=== PATIENT | male | born 1990 | race Caucasian/White ===

== ENCOUNTER 2022-05-16 12:28 | Emergency (ER) | payer OTHER ==
[2022-05-16 14:06] LABS: HEMOGLOBIN 14.8 gm/dl (14.0-17.5); WHITE BLOOD COUNT 12.9 K/UL (4.5-11.0)
[2022-05-16 14:24] LABS: BUN/CREATININE RATIO 14 (0-10)
[2022-05-16] MEDS ORDERED: NARCAN4 MG (18:56)
== END 2022-05-16 20:53 | disposition home or self-care (01) ==
LOC: ER1 12:28
PROVIDERS: Family Medicine
DX: T40.1X1A Poisoning by heroin, accidental (unintentional), initial encounter (principal)
CPT/HCPCS: 80053; 80307; 85025; 99284; G0480